=== PATIENT | male | born 1970 | race Caucasian/White ===

== ENCOUNTER → 2017-10-24 13:22 | Outpatient (CLI) | payer OTHER, SELFPAY ==
--- NOTE | 2017-10-24 13:30 | RAD_ITS ---
STUDY: X-RAY - RIGHT SHOULDER REASON FOR EXAM: Male, 47 years old. Chronic pain TECHNIQUE: 4 view(s) of the shoulder. COMPARISON: None. FINDINGS: Normal glenohumeral articulation. Normal acromioclavicular joint. Normal acromion. Normal humeral head and visualized proximal humerus. The soft tissue structures are unremarkable. Normal visualized pulmonary apex. RAD/Shoulder min 2 Views IMPRESSION: Normal x-ray examination of the shoulder. Electronically Signed: Francisco Kent MD at 20:53 EDT , Service support ,
== END ==
PROVIDERS: Family Provider Internal Medicine; PCP Internal Medicine; Visit Provider Nurse Practitioner Gerontology
DX: M25.511 Pain in right shoulder (principal)
CPT/HCPCS: 73030

== ENCOUNTER → 2017-11-08 10:46 | Outpatient (CLI) | payer OTHER, SELFPAY ==
--- NOTE | 2017-11-08 10:48 | MRI_ITS ---
STUDY: MRI RIGHT SHOULDER REASON FOR EXAM: Male, 47 years old. Pain. TECHNIQUE: Standardized fat and water weighted pulse sequences were obtained in all 3 orthogonal planes. COMPARISON: X-ray October 23, 2017 FINDINGS: Normal supraspinatus tendon. There is infraspinatus tendinosis with tendon thickening, but without a demonstrated tendon tear. Normal subscapularis tendon. Normal teres minor tendon. Normal supraspinatus muscle. Normal infraspinatus muscle. Normal subscapularis muscle. Normal teres minor muscle. Normal glenohumeral articulation. Normal humeral head and visualized proximal humerus. Normal biceps labral complex. Normal intracapsular long biceps tendon. There is degenerative signal and tearing of the superior labrum, series 5 images 04/17 through 06/17 . Normal capsulo- ligamentous complex. Normal rotator interval. There is mild osteoarthritis of the acromioclavicular articulation. There is a Type II morphology (curved the acromion), with a neutral orientation. There is no subacromial-subdeltoid bursal fluid. Normal visualized coracohumeral and coracoacromial ligaments. Normal quadrilateral space. Normal axillary space. Normal deltoid muscle. Normal trapezius muscle. MRI/Upper Ext Joint Only(Routine) IMPRESSION: No rotator cuff tear. SLAP lesion with tear of the superior labrum. Electronically Signed: Favio Jj MD at 13:15 EDT , Service support ,
== END ==
PROVIDERS: Family Provider Internal Medicine; PCP Internal Medicine; Visit Provider Orthopaedic Surgery
DX: M75.101 Unspecified rotator cuff tear or rupture of right shoulder, not specified as traumatic (principal)
CPT/HCPCS: 73221

== ENCOUNTER 2017-11-21 09:28 | Day surgery (SDC) | payer OTHER, SELFPAY ==
--- NOTE | 2017-11-21 09:36 | EKG12_ITS ---
Test Reason : PROP Blood Pressure : / mmHG Vent. Rate : 074 BPM Atrial Rate : 074 BPM P-R Int : 150 ms QRS Dur : 098 ms QT Int : 386 ms P-R-T Axes : 031 -08 036 degrees QTc Int : 428 ms Normal sinus rhythm Normal ECG No previous ECGs available Confirmed by THADDEUS BARAHONA ([id number]), senior technical editor CHERYL VELAZQUEZ ([id number] on 11/26/2017 4:08:24 PM Referred By: Larry Gilbert Confirmed By:THADDEUS BARAHONA
[2017-11-21 10:18] VITALS: BP 144/96; PULSE 73; RESP 18; TEMP 36.6; O2SAT 99; BMI 30.6
--- NOTE | 2017-11-21 10:20 | PCM.DC.ORTHO ---
Discharge Activity: Return to Normal Activity, May not drive while taking narcotic pain medications., May Shower, - - Sling 24 7 except for shower. May shower in (days): 2 May resume sexual activity in: 6 weeks Ice area for (Minutes): 20 Weight Bearing Status: No weight bearing Lifting Restrictions: No lifting Additional Activity Instructions:: May flex and extend arm ad bhumika. Do not move shoulder. May perform pendulum exercises 3 times per day. Call your doctor if your incision/area has: Continuous Slow Oozing, Sudden Increased Bleeding, Increased Pain/ Swelling, Increased Redness, Foul Smelling Discharge, Swelling at the incision site Call your doctor if you observe: Fever of 101 or Higher, Coldness, Increased Pain, Numbness or Tingling, Change in Color, Inability to urinate, Inability to have a bowel movement, Using more than one pad per hour, Shortness of breath, Dizziness, Fainting spells, Swelling in the ankles, Chest pain, Prolonged hiccoughing, Increased palpitations (irregular heartbeat), Calf discomfort, Uncontrolled pain Suture Line Care: Avoid Pulling/Pushing, Avoid Pinching/Bending Change Dressing in (Days):: 2 Remove Dressing in (days):: 2 Cleanse incision/area with: Soap & Water Additional Dressing/Incision Instructions:: Remove dressing on Saturday. May shower at that time. Do not submerge wound. Replace dressing with Band-Aids as needed. Wash hands prior to touching wound. Allergies/Adverse Reactions: Allergies No Known Allergies Allergy (Verified 11/19/17 13:23) Medications to take at Discharge fluoxetine 10 mg capsule 10 mg PO DAILY cap 11/06/17 tramadol 50 mg tablet See Label Instructions PO Q6H PRN 7 Days #50 tab 11/06/17 alprazolam 0.5 mg tablet See Label Instructions PO ONCE #1 tab 11/13/17 Meloxicam [Mobic] 7.5 mg PO DAILY 11/19/17 Docusate Sodium [Colace] 100 mg PO BID PRN PRN #10 cap 11/21/17 Oxycodone HCl/Acetaminophen [Percocet 5/325] 1 - 2 tablet PO Q4H PRN PRN #60 tablet 11/21/17 proMETHazine tablet [Phenergan] 25 mg PO Q4H PRN PRN #10 tab 11/21/17 The following prescriptions were given: Oxycodone HCl/Acetaminophen [Percocet 5/325] 1 - 2 tablet PO Q4H PRN PRN #60 tablet PRN Reason: Pain proMETHazine tablet [Phenergan] 25 mg PO Q4H PRN PRN #10 tab PRN Reason: Nausea Docusate Sodium [Colace] 100 mg PO BID PRN PRN #10 cap PRN Reason: Constipation Primary Care Physician: Kelley Diaz DO [Primary Care Provider] - Please Follow Up With: Larry Gilbert DO When: call [facility] for appt for 2 weeks Proposed Discharge Date: 11/21/17
[2017-11-21] MEDS: Cefazolin 2 GM in 0.9% Normal Saline 100 ML IV (11:05)
[2017-11-21 12:11] VITALS: BP 127/96; BP 144/96; PULSE 66; RESP 16; TEMP 35.7; O2SAT 92
[2017-11-21 12:30] VITALS: BP 131/101; BP 144/96; PULSE 64; RESP 16; O2SAT 95
[2017-11-21 12:42] VITALS: BP 130/104; BP 144/96; PULSE 64; RESP 16; O2SAT 93
[2017-11-21 12:48] VITALS: BP 129/106; BP 144/96; PULSE 68; RESP 16; TEMP 35.8; O2SAT 95
[2017-11-21 13:09] VITALS: BP 144/96
== END 2017-11-21 13:17 | disposition home or self-care (01) ==
LOC: SDC 09:30 → AC 09:30
PROVIDERS: Family Provider Internal Medicine; PCP Internal Medicine; Visit Provider Orthopaedic Surgery
PROC: (CPT 29827; principal; 2017-11-21 10:40)
DX: S43.431A Superior glenoid labrum lesion of right shoulder, initial encounter (principal); Z53.09 Procedure and treatment not carried out because of other contraindication; M75.41 Impingement syndrome of right shoulder; M75.21 Bicipital tendinitis, right shoulder; X58.XXXA Exposure to other specified factors, initial encounter; Z79.899 Other long term (current) drug therapy; F41.9 Anxiety disorder, unspecified; I99.8 Other disorder of circulatory system
CPT/HCPCS: 29807; 93005; J7120

== ENCOUNTER → 2017-12-03 12:06 | Outpatient (CLI) | payer OTHER, SELFPAY ==
[2017-12-03 14:10] LABS: Anion Gap 8 (5-15); BUN 11 mg/dL (7-18); BUN/Creat Ratio 11.6 RATIO (10-20); Calcium,Total 9.1 mg/dL (8.5-10.1); Chloride 106 mmol/L (98-107); Creatinine, Serum 0.95 mg/dL (0.70-1.30); EST Glomerular Filtration Rate 90 mL/min (>60); Est Glom Filt Rate - Afr Amer 109 mL/min (>60); Glucose 86 mg/dL (74-106); Potassium 3.8 mmol/L (3.5-5.1); Sodium Level 139 mmol/L (136-145)
== END ==
PROVIDERS: Family Provider Internal Medicine; PCP Internal Medicine; Visit Provider Internal Medicine
DX: I10 Essential (primary) hypertension (principal)
CPT/HCPCS: 36415; 80048

== ENCOUNTER 2017-12-17 05:19 | Day surgery (SDC) | payer OTHER, SELFPAY ==
[2017-12-03] VITALS (10 sets, daily range): BP systolic 133–188; BP diastolic 92–111; PULSE 65–78; RESP 16; TEMP 36.5; O2SAT 96; BMI 30.1
--- NOTE | 2017-12-03 09:03 | DCINST_ITS ---
Discharge Diet: No Restrictions Discharge Activity: May not drive while taking narcotic pain medications., May Shower, - - Sling 24 7 except for shower May shower in (days): 2 May resume sexual activity in: 8 weeks Ice area for (Minutes): 20 Weight Bearing Status: No weight bearing Lifting Restrictions: No lifting with right upper extremity Additional Activity Instructions:: Perform Codman exercises or pendulum exercises 3 times per day. Flex and extend elbow with palm down. Call your doctor if your incision/area has: Continuous Slow Oozing, Sudden Increased Bleeding, Increased Pain/ Swelling, Increased Redness, Foul Smelling Discharge, Swelling at the incision site Call your doctor if you observe: Fever of 101 or Higher, Coldness, Increased Pain, Numbness or Tingling, Change in Color, Inability to urinate, Inability to have a bowel movement, Using more than one pad per hour, Shortness of breath, Dizziness, Fainting spells, Swelling in the ankles, Chest pain, Prolonged hiccoughing, Increased palpitations (irregular heartbeat), Calf discomfort, Uncontrolled pain Suture Line Care: Avoid Pulling/Pushing, Avoid Pinching/Bending Change Dressing in (Days):: 2 Remove Dressing in (days):: 2 Cleanse incision/area with: Soap & Water Additional Dressing/Incision Instructions:: May shower. Remove dressing prior to shower. Replace dressing with simple Band-Aids as long as there is no drainage. Recommend wearing button-down shirts. Allergies/Adverse Reactions: Allergies No Known Allergies Allergy (Verified 11/28/17 15:43) Medications to take at Discharge fluoxetine 10 mg capsule 40 mg PO DAILY cap 11/06/17 busPIRone [Buspar] 15 mg PO BID 11/28/17 tramadol 50 mg tablet 50 mg PO Q6H PRN PRN #30 tab 11/29/17 Docusate Sodium [Colace] 100 mg PO BID PRN PRN #10 cap 12/03/17 Hydrocodone Bitart/Apap 5-325 [[place] 5/325] 1 - 2 tablet PO Q6H PRN PRN #60 tablet 12/03/17 Lorazepam [Ativan] 2 mg PO X1 12/03/17 proMETHazine tablet [Phenergan] 25 mg PO Q4H PRN PRN #10 tab 05/08/18 The following prescriptions were given: proMETHazine tablet [Phenergan] 25 mg PO Q4H PRN PRN #10 tab PRN Reason: Nausea Hydrocodone Bitart/Apap 5-325 [[place] 5/325] 1 - 2 tablet PO Q6H PRN PRN #60 tablet PRN Reason: Pain Docusate Sodium [Colace] 100 mg PO BID PRN PRN #10 cap PRN Reason: Constipation Primary Care Physician: Kelley Diaz DO [Primary Care Provider] - Please Follow Up With: Larry Gilbert DO When: call [facility] for appt for 2 weeks Proposed Discharge Date: 12/03/17
--- NOTE | 2017-12-03 09:04 | OP.PN_ITS ---
Immediate Post-Op Note Date of Procedure: 12/03/17 Primary Surgeon/Physician: Larry Gilbert DO advanced manufacturing consultant: Sophia Diaz Pre-Operative Diagnosis: Right shoulder SLAP lesion, subacromial impingement, biceps tendinitis Post-Operative Diagnosis: Same as above Surgery/Procedure Performed:: Right shoulder arthroscopy, Description of Surgical Findings:: See dictation Estimated Blood Loss: 20 Specimen's removed: None Type of Anesthesia:: General ASA Class: ASA2 Mod Systematic Disease - Admit VTE Documentation VTE Present on Admission: No VTE Mechan Device Prophylaxis: SCD's, Knee High ELOY Hose VTE Pharm Prophylaxis ordered?: No Reason prophylaxis not ordered:: Treatment Not Indicated
--- NOTE | 2017-12-03 10:55 | SUR.PREOP ---
pt and spoke with dr urbina at length regarding reason for surgery being cancelled. aware of bp issues that need addressed prior to surgery.
[2017-12-17] VITALS (9 sets, daily range): BP systolic 110–130; BP diastolic 72–87; PULSE 64–72; RESP 16; TEMP 36–36.4; O2SAT 93–98; BMI 30.1
[2017-12-17] MEDS: Cefazolin 2 GM in 0.9% Normal Saline 100 ML IV (07:21)
--- NOTE | 2017-12-17 08:56 | PCM.IMDPSTOP ---
Immediate Post-Op Note Date of Procedure: 12/17/17 Primary Surgeon/Physician: Larry Gilbert DO clinical nursing intern: Gumaro Ty Pre-Operative Diagnosis: Right shoulder biceps tendinitis subacromial impingement Post-Operative Diagnosis: Same as above Surgery/Procedure Performed:: Right shoulder arthroscopy with a subsequent biceps tenotomy and arthroscopic subacromial decompression Description of Surgical Findings:: See dictation Estimated Blood Loss: 10 Specimen's removed: None Type of Anesthesia:: General ASA Class: ASA2 Mod Systematic Disease - Admit VTE Documentation VTE Present on Admission: No VTE Mechan Device Prophylaxis: SCD's, Knee High ELOY Hose VTE Pharm Prophylaxis ordered?: No Reason prophylaxis not ordered:: Treatment Not Indicated
--- NOTE | 2017-12-17 09:04 | OP.PCM_ITS ---
Report of Operation Date of Procedure: 12/17/17 Pre-Operative Diagnosis: Right shoulder biceps tendinitis subacromial impingement Post-Operative Diagnosis: Same as above Surgery/Procedure Performed:: Right shoulder arthroscopy with a subsequent biceps tenotomy and arthroscopic subacromial decompression Description of Surgical Findings:: 47-year-old male with recalcitrant right shoulder pain that failed nonoperative management to include NSAIDs active modifications physical therapy and injections. Patient had an MRI that was concerning for a type II SLAP and associated fluid around his biceps. Patient also showed a significant amount of subacromial bursitis. Having failed conservative measures patient was counseled consented for right shoulder arthroscopy rotator cuff repair versus debridement arthroscopic subacromial decompression and biceps tenotomy versus tenodesis. Patient was met in the holding area where the right upper extremity was marked and identified by the with surgeon. Patient was taken the operating room in satisfactory condition with somewhat to place to identify patient operative procedure and limb. Patient received 2 g of Ancef. Patient underwent a successful intubation he was then placed into the beachchair position with all bony and soft tissue prominences protected. His head was in a fine neutral position. He was then prepped and draped in the usual fashion. Right shoulder was placed into the [place] O arm lutz. Posterior portal was established we entered into the intra-articular space. Upon identification of the anatomic triangle and anterior inferior working portal was established diagnostic scope should the patient have an atypical variant to the biceps which was partially extracapsular. His labrum actually blended in with the medial aspect of the capsule. However this was a normal anatomic variant on the SLAP region. He just showed some mild fissure formation to the articular cartilage but no signs of the scar formation that was concerning for SLAP changes. The patient did show fraying anteriorly at the 3 o'clock position which was debrided debrided mechanically. His [facility] were within normal limits. He had some mild fraying to the subscap sling. However the insertional root of the subscapularis was normal. The biceps was inflamed upon outlet. I elected to tenotomized at the root and then decompressed the portion of the SG EHL which was still intact. This was done with a mechanical shaver and vapor cautery. The patient's anterior central and posterior cuffs were otherwise within normal limits. He had no loose bodies x- ray pouch. Anterior inferior labrum and posterior superior labrum were normal. As was the posterior inferior labrum. He had no chondral changes to the humeral head or to the glenoid. The biceps upon retraction hung up the transverse ligament. At that point time we then retracted the scope and moved in the subacromial space. A lateral working portal was established. The patient had moderate to severe subacromial bursitis. Standard arthroscopic subacromial bursectomy and decompression was undertaken until the rotator cuff could be visualized through internal and external rotation. There was no signs of any rotator cuff pathology. The patient did have a hypertrophic CA ligament with with signs of impingement. It was gently undermined across anterolateral acromion and a 4 mm subacromial decompression was undertaken. At that point time the scope was retracted and the portal sites were closed with 3-0 nylon. We then turned our attention to the evaluation of the biceps for possible tenodesis. The patient had a tooth 2-1/2 cm incision made across the anterior edge of the deltoid and just near the inferior border of this pectoralis major. The brachial fascia was identified longitudinally split and the biceps tendon was identified and looked like he was under very good tension. I undermined it made an attempt to mobilize it with manual traction was actually physically pulling the patient. The biceps tendon again was reconfirmed to be the appropriate tendon seen within the intertubercular groove. Due to the fact that the biceps had hung up upon outlet I felt that the patient had somewhat auto tenodesed at the transverse ligament and I elected not to further jeopardize good anatomic positioning of the tendon or place the patient at risk for implant injury. I elected to simply complete the procedure and allow the patient again to heal within the transverse ligament. This technique has been discussed by Dr. Christopher Price at the [facility] with good outcome. At that point time his wounds were copiously irrigated and the soft tissues reapproximated with 3-0 Vicryl. The subcu tissues were closed with Monocryl. Steri-Strips were applied. He was then dressed in the usual fashion with Xeroform 4 x 4's ABDs and Medipore tape and placed into a UltraSling. Patient will continue to follow the sub-pack tenodesis protocol for at least 4 weeks to allow further scarring of the biceps to the transverse ligament. Patient will have free motion about the shoulder joint otherwise. I was scrubbed and available time during our procedure. We had no drains or complications no implants. Any major issues please contact. proposal review analyst: Gumaro Ty Type of Anesthesia:: General Specimen's removed: None Estimated Blood Loss (mL): 10 Grafts/Implants Used: None - Complications None - Admit VTE Documentation VTE Present on Admission: No VTE Mechan Device Prophylaxis: SCD's, Knee High ELOY Hose VTE Pharm Prophylaxis ordered?: No Reason prophylaxis not ordered:: Treatment Not Indicated
--- NOTE | 2017-12-17 09:04 | PCM.DC.ORTHO ---
Discharge Diet: No Restrictions Discharge Activity: Return to Normal Activity, May not drive while taking narcotic pain medications., May Shower, - - Sling 24 7 except for shower May shower in (days): 2 May resume sexual activity in: 8 weeks Ice area for (Minutes): 20 Weight Bearing Status: No weight bearing Additional Activity Instructions:: Perform Codman exercises or pendulum exercises 3 times per day. Flex and extend elbow with palm down. Call your doctor if your incision/area has: Continuous Slow Oozing, Sudden Increased Bleeding, Increased Pain/ Swelling, Increased Redness, Foul Smelling Discharge, Swelling at the incision site Call your doctor if you observe: Fever of 101 or Higher, Coldness, Increased Pain, Numbness or Tingling, Change in Color, Inability to urinate, Inability to have a bowel movement, Using more than one pad per hour, Shortness of breath, Dizziness, Fainting spells, Swelling in the ankles, Chest pain, Prolonged hiccoughing, Increased palpitations (irregular heartbeat), Calf discomfort, Uncontrolled pain Suture Line Care: Avoid Pulling/Pushing, Avoid Pinching/Bending Change Dressing in (Days):: 2 Remove Dressing in (days):: 2 Cleanse incision/area with: Soap & Water Additional Dressing/Incision Instructions:: May shower. Remove dressing prior to shower. Replace dressing with simple Band-Aids as long as there is no drainage. Recommend wearing button-down shirts. Allergies/Adverse Reactions: Allergies No Known Allergies Allergy (Verified 12/11/17 13:04) Medications to take at Discharge fluoxetine 10 mg capsule 40 mg PO DAILY cap 11/06/17 busPIRone [Buspar] 15 mg PO DAILY 11/28/17 Lorazepam [Ativan] 2 mg PO PRN PRN 12/03/17 tramadol 50 mg tablet 50 mg PO Q6H PRN PRN #30 tab 12/12/17 Metoprolol Tartrate [Lopressor (Beta Rick)] 25 mg PO DAILY 12/16/17 Ramipril [Altace] 10 mg PO DAILY 12/16/17 Docusate Sodium [Colace] 100 mg PO BID PRN PRN #10 cap 12/17/17 Oxycodone HCl/Acetaminophen [Percocet 5/325] 1 - 2 tablet PO Q4H PRN PRN #60 tablet 12/17/17 proMETHazine tablet [Phenergan] 25 mg PO Q4H PRN PRN #10 tab 12/17/17 The following prescriptions were given: Oxycodone HCl/Acetaminophen [Percocet 5/325] 1 - 2 tablet PO Q4H PRN PRN #60 tablet PRN Reason: Pain proMETHazine tablet [Phenergan] 25 mg PO Q4H PRN PRN #10 tab PRN Reason: Nausea Docusate Sodium [Colace] 100 mg PO BID PRN PRN #10 cap PRN Reason: Constipation Primary Care Physician: Kelley Diaz DO [Primary Care Provider] - Please Follow Up With: Larry Gilbert DO When: call [facility] for appt for 2 weeks Proposed Discharge Date: 12/17/17
[2017-12-17] MEDS: Ketorolac 15 MG/ML Vial IV (09:37)
== END 2017-12-17 11:39 | disposition home or self-care (01) ==
LOC: SDC 05:20 → AC 05:21
PROVIDERS: Family Provider Internal Medicine; PCP Internal Medicine; Visit Provider Orthopaedic Surgery
PROC: (CPT 29807; principal; 2017-12-17 06:55)
DX: M75.21 Bicipital tendinitis, right shoulder (principal); M75.41 Impingement syndrome of right shoulder; M75.51 Bursitis of right shoulder; Z79.899 Other long term (current) drug therapy; I10 Essential (primary) hypertension; K21.9 Gastro-esophageal reflux disease without esophagitis
CPT/HCPCS: 01630; 23405; 29823; J7120; A4216

== ENCOUNTER 2018-03-03 10:09 | Emergency (ER) | payer OTHER, SELFPAY ==
[2018-03-03 10:14] VITALS: BP 155/85; PULSE 72; RESP 24; TEMP 36; O2SAT 100; BMI 30.1
--- NOTE | 2018-03-03 10:22 | CT_ITS ---
STUDY: CT ABDOMEN AND PELVIS WITHOUT CONTRAST REASON FOR EXAM: Male, 48 years old. Right lower abdominal pain, vomiting, diaphoretic. RADIATION DOSAGE (If Supplied By Facility): CTDIvol = ( 16.92 ) mGy, DLP = ( 938.73 ) mGycm TECHNIQUE: Transaxial images were obtained from the dome of the diaphragm to the symphysis pubis without oral contrast, and without intravenous contrast. Sagittal and coronal images were reconstructed. Individualized dose optimization techniques were used for this CT. COMPARISON: None. FINDINGS: Body wall soft tissues: No acute process. Osseous structures: No acute process. Inferior chest: No acute process. Hepatobiliary: Hepatic steatosis with hepatomegaly, craniocaudal liver 20 cm. Normal gallbladder and biliary tree. Pancreas: No acute process. Spleen: Normal. Adrenal glands: Normal. Urogenital: Left kidney, collecting system and ureter normal. Right mild grade 1 hydronephrosis with mild hydroureter, with calculus in the distal ureter about 2 cm from the base of the urinary bladder. The calculus measures proximally 6 x 4 mm. Normal urinary bladder, prostate and seminal vesicles. Pelvic floor and sidewalls and retroperitoneum: No mass or adenopathy. Vasculature: No acute process. Stomach: No acute process. Small bowel and mesentery: No acute process. Large bowel: There is creeping fat surrounding the thick-walled portions of the mid to distal sigmoid and rectum. Wall thickening is mild and is probably chronic. There is no acute inflammatory induration at this time in the surrounding fat. These features suggest sequela from prior colitis. Free fluid or free air: None. CT/Abdomen/Pelvis without Cont IMPRESSION: Calculus passage from the right kidney. The calculus lies in the distalmost right ureter just proximal to the ureterovesical junction. Hydronephrosis is mild. There are no retained calculi in the right or the left kidney. Hepatic steatosis with hepatomegaly. Features of the sigmoid colon and rectum suggest prior episodes of colitis without acute inflammation at this time. Clinically correlate. Electronically Signed: Cipriano Dukes, at 11:02 EDT Tel , Service support ,
--- NOTE | 2018-03-03 10:24 | ED.DCSUM_ITS ---
- ER Visit Summary Date of Service: 03/03/18 Chief Complaint: Abdominal pain History of Present Illness: The patient is a 48 M who presents with abdominal pain. Started this morning. It sharp in the right lower quadrant. It does not radiate. He has had associated nausea and vomiting. He denies diarrhea. No urinary symptoms. He has not had a fever. He denies any history of kidney stones. He has never had any abdominal surgeries in the past. He was hyperventilating in triage but states he has a history of anxiety. Physical Examination: Vital signs reviewed. HEENT exam unremarkable. Heart is regular rate and rhythm without murmurs. Lungs are clear to auscultation. Abdomen is soft with tenderness in the right lower quadrant. There is voluntary guarding. No rebound. extremities reveal no edema. Skin exam normal. Neurologic exam normal. Test Results: Labs are unremarkable except for a glucose of 117. Urinalysis has 5-10 red blood cells. CAT scan reveals a stone in the distal right ureter. It measures 6 x 4 mm with mild hydronephrosis Emergency Department Course and Treatment: Patient was given morphine and Zofran without any symptom control. He was given Toradol and feels much better. He will be discharged with naproxen, Allamuchy and Flomax. He will follow- up with his PCP and urology Treatment Plan: [] Disposition: discharge Impression: Left ureterolithiasis This note was generated with [employer] dictation software. It may contain incorrect words, spelling, and punctuation that were not noted in review of the chart prior to signing ED Disposition - Plan for ED Patient: Chief Complaint: Abd Pain Referrals: Kelley Diaz DO [Primary Care Provider] -
[2018-03-03] MEDS: 0.9% Normal Saline 1,000 ML 1000 ML IV (10:31)
[2018-03-03] MEDS: morphine 8 MG/ML Syringe IV (10:31)
[2018-03-03] MEDS: Ondansetron 4 MG/2 ML Vial IV (10:32)
[2018-03-03 10:33] VITALS: BP 156/105; PULSE 69; RESP 17; O2SAT 99
[2018-03-03 10:45] LABS: Absolute Lymphocyte Count 2.38 X10^3/ul (0.83-4.51); Absolute Neutrophil Count 4.1 X10^3/uL (2.0-7.7); Basophil# 0.01 X10^3/uL; Basophil% 0.1 % (0-1); Eosinophil# 0.14 X10^3/uL; Eosinophils% 1.9 % (0-5); Hematocrit 43.3 % (40-54); Hemoglobin 14.9 g/dl (13.0-16.5); Lymphocyte # 2.38 X10^3/ul (4.0); Lymphocyte % 32.4 % (19-41); Mean Corp Hgb Conc 34.4 g/gl (32-36); Mean Corpuscular Hgb 29.2 pg (27.0-32.0); Mean Corpuscular Volume 84.7 fL (80-94); Mean Platelet Vol. 10.4 fl (6.2-12.0); Monocyte# 0.69 X10^3/uL; Monocyte% 9.4 % (0-10); Neutrophil # 4.11 X10^3/uL (2.7-7.7); Neutrophil % 56.1 % (47-70); Platelet Count 277 K/mm3 (150-450); RBC Distribution Width CV 12.9 % (11.6-14.6); RBC Distribution Width SD 39.7 fl (35.1-43.9); Red Blood Count 5.11 M/mm3 (4.6-6.2); White Blood Count 7.3 K/mm3 (4.4-11.0)
[2018-03-03 10:46] LABS: POSITIVE COUNT NO; POSITIVE DIFFERENTIAL NO; POSITIVE MORPHOLOGY NO
[2018-03-03 11:08] LABS: ALB/GLOB Ratio 1.1 RATIO (0.9-2.4); AST(SGOT) 17 U/L (15-37); Alanine Aminotransfer ALT/SGPT 39 U/L (16-61); Alkaline Phosphatase 69 U/L (45-117); Anion Gap 8 (5-15); BUN 16 mg/dL (7-18); BUN/Creat Ratio 15.2 RATIO (10-20); Calcium,Total 8.7 mg/dL (8.5-10.1); Chloride 109 mmol/L (98-107); Creatinine, Serum 1.05 mg/dL (0.70-1.30); EST Glomerular Filtration Rate 81 mL/min (>60); Est Glom Filt Rate - Afr Amer 97 mL/min (>60); Globulin 3.6 g/dL (2.2-4.2); Glucose 117 mg/dL (74-106); Lipase 285 U/L (73-393); Potassium 3.7 mmol/L (3.5-5.1); Protein, Total 7.6 g/dL (6.4-8.2); Sodium Level 140 mmol/L (136-145)
[2018-03-03 11:38] VITALS: BP 147/103; PULSE 72; RESP 11; O2SAT 97
[2018-03-03 12:13] LABS: Squamous Epithelial Cells - UA 0 SEEN /hpf (0-5); White Blood Cells 0 SEEN /hpf (0-5)
[2018-03-03 12:15] LABS: Color, Urine Yellow (Yellow); Glucose, Dipstick Normal (Normal); Ketone-Dipstick Negative (Negative); Leukocyte Esterase-Dipstick Negative /ul (Negative); Nitrite-Dipstick Negative (Negative); Occult Blood-Urine 250 /ul (Negative); Protein-Dipstick 15 mg/dl (Negative); Specific Gravity, Urine 1.015 (1.002-1.030); Urine Bilirubin Dipstick Negative (Negative); Urine Clarity Clear (Clear); Urine Urobilinogen Normal (Normal)
[2018-03-03 12:17] VITALS: BP 144/92; PULSE 68; RESP 13; O2SAT 96
[2018-03-03 12:25] LABS: Bacteria RARE /hpf (None Seen); Mucous, Urine 1+ /hpf (<or=2+); Red Blood Cells-Urine 5-10 SEEN /hpf (0-5)
[2018-03-03] MEDS: Ketorolac 30 MG/ML Syringe IV (12:27)
[2018-03-03 13:05] VITALS: BP 142/87; PULSE 76; RESP 12; O2SAT 96
--- NOTE | 2018-03-03 13:16 | ED.DEP ---
ED Disposition - Plan for ED Patient: Disposition: Home or Assisted Living Chief Complaint: Abd Pain Instructions: ED Stone Renal W Colic Prescriptions: Hydrocodone/Acetaminophen [[place] 5-325 Tablet] 1 - 2 ea PO 4X/DAY PRN PRN 3 Days #12 tab PRN Reason: Pain Naproxen [Naprosyn] 500 mg PO BID PRN #20 tab Tamsulosin HCl [Flomax] 0.4 mg PO DAILY #7 cap Referrals: Kelley Diaz DO [Primary Care Provider] -
--- NOTE | 2018-03-03 13:19 | DCINST.ED_ITS ---
ED Disposition - Plan for ED Patient: Disposition: Home or Assisted Living Chief Complaint: Abd Pain Instructions: ED Stone Renal W Colic Prescriptions: Hydrocodone/Acetaminophen [[place] 5-325 Tablet] 1 - 2 ea PO 4X/DAY PRN PRN 3 Days #12 tab PRN Reason: Pain Naproxen [Naprosyn] 500 mg PO BID PRN #20 tab Tamsulosin HCl [Flomax] 0.4 mg PO DAILY #7 cap Referrals: Kelley Diaz DO [Primary Care Provider] -
[2018-03-03 13:31] VITALS: BP 128/88; PULSE 73; RESP 18; O2SAT 96
== END 2018-03-03 13:33 | disposition home or self-care (01) ==
PROVIDERS: Emergency Provider Emergency Medicine; Family Provider Internal Medicine; PCP Internal Medicine
DX: N13.2 Hydronephrosis with renal and ureteral calculous obstruction (principal); J45.909 Unspecified asthma, uncomplicated; F41.9 Anxiety disorder, unspecified; Z86.79 Personal history of other diseases of the circulatory system; Z79.899 Other long term (current) drug therapy
CPT/HCPCS: 74176; 80053; 81001; 83690; 85025; 96361; 96374; 96375; 99283; J7030; A4216; J2405